=== PATIENT | female | born 1975 | race African-American/Black ===

== ENCOUNTER 2019-02-08 15:04 | Emergency (ER) | payer BC ==
[2019-02-08 15:19] VITALS: BMI 48.6
--- NOTE | 2019-02-08 15:19 | PDOC ---
Rapid Medical Evaluation Chief Complaint: Chest Pain Time Seen by Provider: 02/08/19 15:14 Medical Evaluation: Allergies Allergy/AdvReac Type Severity Reaction Status Date / Time No Known Allergies Allergy Verified 09/21/14 02:19 02/08/19 15:16 I have performed a brief in-person evaluation of this patient. The patient presents with a chief complaint of: Chest pain with worsen leg swelling , +SOB Pertinent physical exam findings: some SOB/ diaphoresis, + 3-4 pitting edema bilat up to knees. I have ordered the following: Ekg, CMP, CBC, Card profile, BNP, UA/Ucg, The patient will proceed to the ED for further evaluation. 02/08/19 15:18 Discharge Disposition - Diagnosis Chest pain - Referrals - Patient Instructions - Post Discharge Activity
--- NOTE | 2019-02-08 16:28 | PDOC ---
*Physical Exam - Vital Signs Last Vital Signs Temp Pulse Resp BP Pulse Ox 98 F 96 H 19 140/78 98 02/08/19 15:16 02/08/19 15:16 02/08/19 15:16 02/08/19 15:16 02/08/19 15:16 ED Treatment Course - LABORATORY CBC & Chemistry Diagram: 02/08/19 17:30 02/08/19 17:30 Medical Decision Making - Medical Decision Making 02/08/19 16:27 Ms Bernal is a 43 yo F with h/o HLD and morbid obesity who presents to ED for chest pain that began at work today. Pt went to PMD who sent her to the ER Pt seen by Midlevel Provider under my direct supervision Ancillary studies pending I agree with plan as outlined by Midlevel Provider 02/08/19 17:45 *DC/Admit/Observation/Transfer Diagnosis at time of Disposition: Atypical chest pain, Shortness of breath, Edema of both lower extremities - Discharge Dispostion Disposition: HOME Condition at time of disposition: Stable - Referrals Referrals: Mic Vital MD [Primary Care Provider] - - Patient Instructions Printed Discharge Instructions: DI for Atypical Chest Pain, DI for Peripheral Edema -- Bilateral Additional Instructions: As discussed, you MUST follow up with Dr. Vital tomorrow for further evaluation of your symptoms. If you develop worsening shortness of breath or chest pain, difficulty breathing, or any new or worsening symptoms, please return to the ER immediately. - Post Discharge Activity Forms/Work/School Notes: Back to Work
[2019-02-08 17:06] VITALS: BP 125/42; PULSE 89; TEMP 97.3
--- NOTE | 2019-02-08 17:28 | PDOC ---
History of Present Illness - General Chief Complaint: Chest Pain Stated Complaint: CHEST PAIN Time Seen by Provider: 02/08/19 15:14 - History of Present Illness Initial Comments: 02/08/19 17:28 CHIEF COMPLAINT: chest pain HISTORY OF PRESENT ILLNESS: 43 yo F with hx of HLD, peripheral edema, fibroids, anemia, sleep apnea, and morbid obesity presents to ED for chest pain that began at work today. For 2-3 days feeling very heavy in the legs, has had edema "forever" but recently the swelling has been even more severe. Chest pain is described at sharp radiating pain to the R chest. She states that she was seen by her PCP MD Vital today who sent her to the ED. Denies any use of OCPs, recent travel, recent surgery. Pt's manager pe is Dr. Martin. No recent travel or sick contacts. PAST MEDICAL HISTORY: Denies past medical history FAMILY HISTORY: Denies SOCIAL HISTORY: Denies tobacco, alcohol, illicit drug use. SURGICAL HISTORY: Denies ALLERGIES: No known drug allergies REVIEW OF SYSTEMS General/Constitutional: Denies fever or chills. Denies weakness, weight change. HEENT: Denies change in vision. Denies ear pain or discharge. Denies sore throat. Cardiovascular: Denies chest pain or shortness of breath. Respiratory: Denies cough, wheezing, or hemoptysis. Gastrointestinal: Denies nausea, vomiting, diarrhea or constipation. Denies rectal bleeding. Genitourinary: Denies dysuria, frequency, or change in urination. Musculoskeletal: Denies joint or muscle swelling or pain. Denies neck or back pain. Skin and breasts: Denies rash or easy bruising. Neurologic: Denies headache, vertigo, loss of consciousness, or loss of sensation. PHYSICAL EXAM General Appearance: Well-appearing, appropriately dressed. No apparent distress. HEENT: EOMI, PERRLA, normal ENT inspection, normal voice, TMs normal, pharynx normal. No conjunctival pallor. No photophobia, scleral icterus. Neck: Supple. Trachea midline. No tenderness, rigidity, carotid bruit, stridor , lymphadenopathy, or thyromegaly. Respiratory/Chest: Dyspnea on exertion, speech dyspnea. Lungs CTAB. No chest tenderness, accessory muscle use. No crackles, rales, rhonchi, stridor, wheezing , dullness Cardiovascular: RRR. S1, S2. No JVD, murmur, bradycardia, tachycardia. Vascular Pulses: Dorsalis-Pedis (R): 2+, Dorsalis-Pedis (L): 2+ Gastrointestinal/Abdominal: Normal bowel sounds. Abdomen soft, non-distended. No tenderness or rebound tenderness. No organomegaly, pulsatile mass, guarding , hernia, hepatomegaly, splenomegaly. Lymphatic: No adenopathy, tenderness. Musculoskeletal/Extremities: 2+ pitting edema to b/l lower extremities. Normal inspection. FROM of all extremities, normal capillary refill. Pelvis Stable. No CVA tenderness. No tenderness to extremities, pedal edema, swelling, erythema or deformity. Integumentary: Appropriate color, dry, warm. 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 Fully oriented, alert. Appropriate mood/affect. Motor strength 5/5. No appreciable EOM palsy, facial droop or sensory deficit. Past History - Past Medical History Allergies/Adverse Reactions: Allergies Allergy/AdvReac Type Severity Reaction Status Date / Time No Known Allergies Allergy Verified 02/08/19 15:19 Home Medications: Ambulatory Orders Venlafaxine HCl [Effexor] 25 mg PO DAILY 08/06/12 COPD: No Psychiatric Problems: Yes (depression, bipolar) Other medical history: sleep apnea - Immunization History Immunization Up to Date: Yes - Suicide/Smoking/Psychosocial Hx Smoking Status: No Smoking History: Never smoked Number of Cigarettes Smoked Daily: 0 Information on smoking cessation initiated: No Hx Alcohol Use: No Drug/Substance Use Hx: No *Physical Exam - Vital Signs Last Vital Signs Temp Pulse Resp BP Pulse Ox 97.3 F L 89 19 125/42 L 97 02/08/19 15:16 02/08/19 15:16 02/08/19 15:16 02/08/19 15:16 02/08/19 15:16 Heart Score/ECG Review - History History: Moderately suspicious - Electrocardiogram EKG: Non specific repolarization disturbance - Age Age: </= 45 - Risk Factors Risk Factors Heart Score: Yes Hx Hypercholesterolemia, Yes Positive family hx of cardiac disease, Yes Hx Obesity Based on the list above the patient has:: 1-2 risk factors - Troponin Troponin: </= normal limit - Score Heart Score - Total: 3 ED Treatment Course - LABORATORY CBC & Chemistry Diagram: 02/08/19 17:30 02/08/19 17:30 - ADDITIONAL ORDERS Additional order review: 02/08/19 17:30 RBC 4.16 MCV 80.2 MCHC 31.8 L RDW 16.9 H MPV 8.6 Neutrophils % 67.8 Lymphocytes % 21.9 Monocytes % 7.0 Eosinophils % 2.5 D Basophils % 0.8 - RADIOLOGY Radiology Studies Ordered: Category Date Time Status CHEST PA & LAT [RAD] Stat Radiology 02/08/19 17:39 Completed DUPLEX VASCUL US-2LEGS [US] Stat Ultrasound 02/08/19 22:48 Completed - Medications Given in the ED: ED Medications Discontinued Medications Generic Name Dose Route Start Last Admin Trade Name Freq PRN Reason Stop Dose Admin Furosemide 40 mg 02/08/19 18:36 02/08/19 18:59 Lasix Injection - IVPUSH 02/08/19 18:37 40 mg ONCE ONE Administration Medical Decision Making - Medical Decision Making 02/08/19 20:08 43 yo F with hx of HLD, peripheral edema, fibroids, anemia, sleep apnea, and morbid obesity presents to ED for chest pain that began at work today. -labs -ekg -cxr 02/08/19 20:38 Labs unremarkable. Patient reassessed, states she feels better at this time and chest pain has improved. Discussed with patient option to discharge with close follow up or observation, patient states she will see her PCP Dr. Vital tomorrow. Will repeat trop prior to discharge. CXR normal on wet read. 02/09/19 22:45 At this time patient presents note from Dr. Vital's office requesting r/o acs, pe/dvt. Will order d-dimer and vascular study. 02/10/19 01:01 US negative, d-dimer neg. Patient to f/u with Dr. Vital tomorrow. *DC/Admit/Observation/Transfer Diagnosis at time of Disposition: Atypical chest pain, Shortness of breath, Edema of both lower extremities - Discharge Dispostion Disposition: HOME Condition at time of disposition: Stable Decision to Admit order: No - Referrals Referrals: Mic Vital MD [Primary Care Provider] - - Patient Instructions Printed Discharge Instructions: DI for Atypical Chest Pain, DI for Peripheral Edema -- Bilateral Additional Instructions: As discussed, you MUST follow up with Dr. Vital tomorrow for further evaluation of your symptoms. If you develop worsening shortness of breath or chest pain, difficulty breathing, or any new or worsening symptoms, please return to the ER immediately. - Post Discharge Activity Forms/Work/School Notes: Back to Work
[2019-02-08 18:00] LABS: BASO % 0.8 % (0-2.0); EOS % 2.5 % (0-4.5); HEMATOCRIT 33.3 % (32.4-45.2); HEMOGLOBIN 10.6 GM/dL (10.7-15.3); LYMPH % 21.9 % (8-40); MCH 25.5 pg (25.7-33.7); MCHC 31.8 g/dl (32.0-36.0); MEAN CELL VOLUME 80.2 fl (80-96); MEAN PLT VOLUME 8.6 fl (7.5-11.1); NEUT % 67.8 % (42.8-82.8); PLATELET COUNT 335 K/MM3 (134-434); RBC 4.16 M/mm3 (3.60-5.2); RDW 16.9 % (11.6-15.6); WHITE BLOOD COUNT 8.1 K/mm3 (4.0-10.0)
[2019-02-08] MEDS ORDERED: FUROSEMIDE 40 MG/4 ML INJECTABLE VIAL IVPUSH ONE (18:36)
[2019-02-08 18:37] LABS: ALBUMIN 3.5 g/dl (3.4-5.0); ALK PHOS 84 U/L (45-117); ANION GAP 5 MMOL/L (8-16); BILIRUBIN,TOTAL < 0.1 mg/dL (0.2-1); BLOOD UREA NITROGEN 10.1 mg/dL (7-18); CALCIUM 8.5 mg/dL (8.5-10.1); CHLORIDE 110 mmol/L (98-107); CO2 29 mmol/L (21-32); CREATININE 1.1 mg/dL (0.55-1.3); GLUCOSE,RANDOM 85 mg/dL (74-106); N-TERMINAL BNP 102.5 pg/ml (5-125); POTASSIUM 4.1 mmol/L (3.5-5.1); SGOT/AST 18 U/L (15-37); SGPT/ALT 23 U/L (13-61); SODIUM 144 mmol/L (136-145); TOT PROT 6.6 g/dl (6.4-8.2)
[2019-02-08] MEDS ORDERED: FUROSEMIDE 40 MG/4 ML INJECTABLE VIAL ONE (18:53)
[2019-02-08 18:56] LABS: INR 1.06 (0.83-1.09); PROTHROMBIN TIME (PATIENT) 12.5 SEC (9.7-13.0)
[2019-02-08 19:00] LABS: EPI CELLS 2.9 /HPF (0-5/HPF); HYALINE CASTS 4 /lpf (0-8); PH,URINE 8.5 (5.0-8.0); URINE APPEARANCE CLEAR; URINE BACTERIA 142.9 /hpf (NEGATIVE); URINE BILIRUBIN NEGATIVE (NEGATIVE); URINE COLOR YELLOW; URINE GLUCOSE (UA) NEGATIVE (NEGATIVE); URINE KETONE TRACE (NEGATIVE); URINE LEUK ESTERASE NEGATIVE (NEGATIVE); URINE NITRITE NEGATIVE (NEGATIVE); URINE PROTEIN 2+ (NEGATIVE); URINE RBC 3 /hpf (0-4); URINE WBC 2 /hpf (0-5)
--- NOTE | 2019-02-09 12:55 | EKG ---
Test Reason : Blood Pressure : / mmHG Vent. Rate : 094 BPM Atrial Rate : 094 BPM P-R Int : 160 ms QRS Dur : 076 ms QT Int : 390 ms P-R-T Axes : 068 033 053 degrees QTc Int : 487 ms NORMAL SINUS RHYTHM PROLONGED QT ABNORMAL ECG WHEN COMPARED WITH ECG OF 21-SEP-2014 02:22, QT HAS LENGTHENED Confirmed by FÁTIMA CANADA MD ([id number]) on 02/09/2019 12:54:41 PM Referred By: Confirmed By:FÁTIMA CANADA MD
== END 2019-02-09 01:57 | disposition home or self-care (01) ==
LOC: JER 15:04
PROC: 3E033GC Introduction of Other Therapeutic Substance into Peripheral Vein, Percutaneous Approach (ICD-10-PCS; principal; 2019-02-08)
DX: R07.9 Chest pain, unspecified (principal); R06.02 Shortness of breath; R60.0 Localized edema; G47.39 Other sleep apnea; E66.01 Morbid (severe) obesity due to excess calories; Z68.42 Body mass index [BMI] 45.0-49.9, adult
CPT/HCPCS: 36415; 71046-TC-FY; 80053; 81003; 82550; 82553; 83735; 83880; 84484; 84703; 85025; 85379; 85610; 93005; 93010; 93970-TC; 99283-25

== ENCOUNTER 2020-12-09 04:41 | Inpatient (IN) | payer BC ==
[2020-12-08 10:18] VITALS: BMI 46.3
[2020-12-09] MEDS ORDERED: PROPOFOL 20 ML ONE ×2 (08:02→10:50)
[2020-12-09] MEDS ORDERED: LIDOCAINE HCL/PF 2% SDV 5ML VIAL ONE (08:02)
[2020-12-09] MEDS ORDERED: fentaNYL CITRATE 250 MCG/5 ML VIAL ONE (08:02)
[2020-12-09] MEDS ORDERED: ONDANSETRON 4 MG/2 ML VIAL ONE (08:02)
[2020-12-09] MEDS ORDERED: ROCURONIUM BROMIDE 100 MG/10 ML VIAL ONE (08:02)
[2020-12-09] MEDS ORDERED: DEXAMETHASONE SOD PHOSPHATE 4 MG/1 ML VIAL ONE (08:02)
[2020-12-09] MEDS ORDERED: MIDAZOLAM HCL 2 MG/2 ML SINGLE DOSE VIAL ONE ×2 (08:27)
[2020-12-09] MEDS ORDERED: ceFAZolin SODIUM 1 GM VIAL ONE (09:00)
[2020-12-09] MEDS ORDERED: ceFAZolin 2 GRAM PREMIX BAG IVPB ONE (09:02)
[2020-12-09] MEDS ORDERED: ROCURONIUM BROMIDE 50 MG/5 ML SYRINGE ONE (09:49)
[2020-12-09] MEDS ORDERED: ACETAMINOPHEN INJECTION 100 ML IVPB ONE ×2 (10:32→10:34)
[2020-12-09] MEDS ORDERED: GLYCOPYRROLATE 0.2 MG/1 ML VIAL ONE (10:47)
[2020-12-09] MEDS ORDERED: NEOSTIGMINE METHYLSULFATE 0.5 MG/ML - 10 ML MDV ONE (10:47)
[2020-12-09] MEDS ORDERED: BENZOIN/ALOE VERA/STORAX/TOLU 58 ML BOTTLE ONE (11:36)
[2020-12-09] MEDS ORDERED: oxyCODONE HCL 5 MG TABLET PO PRN ×4 (12:01→12:19)
[2020-12-09] MEDS ORDERED: IBUPROFEN 800 MG/8 ML IJ IVPB PRN (12:01)
[2020-12-09] MEDS ORDERED: LACTATED RINGERS SOLUTION 1,000 ML IV SCH (12:30)
[2020-12-09] MEDS: ELECTROLYTE-148 SOLN 1,000 ML IV SCH (13:45)
[2020-12-09] MEDS: ACETAMINOPHEN 325 MG TABLET (FP) PO SCH ×2 (16:23→21:33)
[2020-12-09] MEDS: CEFAZOLIN 2 GM/D5W 2 GM/50 ML ML IVPB SCH (17:17)
[2020-12-09] MEDS ORDERED: diazePAM CARPU-JECT 10 MG/2 ML DISP.SYRIN IVPUSH ONE (18:23)
[2020-12-09] MEDS: ONDANSETRON 4 MG/2 ML VIAL IVPUSH PRN (21:38)
[2020-12-09] MEDS ORDERED: SENNOSIDES/DOCUSATE COMBO (SENNA PLUS) TABLET (UD) PO PRN (22:00)
[2020-12-09] MEDS: lamoTRIgine 100 MG TABLET PO SCH (22:22)
[2020-12-09] MEDS: ASCORBIC ACID 500 MG TABLET (FP) PO SCH (22:22)
[2020-12-10] MEDS: CEFAZOLIN 2 GM/D5W 2 GM/50 ML ML IVPB SCH (02:38)
[2020-12-10] MEDS: ACETAMINOPHEN 325 MG TABLET (FP) PO SCH ×4 (04:38→21:32)
[2020-12-10] MEDS: traMADol HCL 50 MG TABLET PO PRN ×2 (08:23→18:53)
[2020-12-10 08:58] LABS: MCH 28.2 pg (25.7-33.7); MCHC 33.3 g/dl (32.0-36.0); MEAN CELL VOLUME 84.8 fl (80-96); MEAN PLT VOLUME 8.8 fl (7.5-11.1); PLATELET COUNT 266 K/MM3 (134-434); RBC 3.54 M/mm3 (3.60-5.2); RDW 17.7 % (11.6-15.6); WHITE BLOOD COUNT 9.7 K/mm3 (4.0-10.0)
[2020-12-10] MEDS: ARIPiprazole 20 MG TABLET PO SCH (09:23)
[2020-12-10] MEDS: ASCORBIC ACID 500 MG TABLET (FP) PO SCH ×2 (09:23→21:31)
[2020-12-10] MEDS: ENOXAPARIN NA (PORCINE) 40 MG/0.4 ML DISP.SYRIN SQ SCH (09:24)
[2020-12-10] MEDS: PYRIDOXINE HCL (B-6) 50 MG TABLET (FP) PO SCH (09:24)
[2020-12-10 09:31] LABS: BLOOD UREA NITROGEN 8.6 mg/dL (7-18)
[2020-12-10 09:35] LABS: BILIRUBIN,TOTAL 0.3 mg/dL (0.2-1); CREATININE 0.8 mg/dL (0.55-1.3)
[2020-12-10 09:36] LABS: TOT PROT 5.7 g/dl (6.4-8.2)
[2020-12-10] MEDS: lamoTRIgine 100 MG TABLET PO SCH ×2 (10:06→21:32)
[2020-12-11] MEDS: ACETAMINOPHEN 325 MG TABLET (FP) PO SCH ×4 (03:42→22:50)
[2020-12-11 08:01] LABS: BASO % 0.6 % (0-2.0); EOS % 0.4 % (0-4.5); HEMATOCRIT 31.1 % (32.4-45.2); HEMOGLOBIN 10.1 GM/dL (10.7-15.3); LYMPH % 14.4 % (8-40); MCH 27.9 pg (25.7-33.7); MCHC 32.6 g/dl (32.0-36.0); MEAN CELL VOLUME 85.4 fl (80-96); MONO % 6.2 % (3.8-10.2); NEUT % 78.4 % (42.8-82.8); PLATELET COUNT 282 K/MM3 (134-434); RBC 3.64 M/mm3 (3.60-5.2); RDW 17.9 % (11.6-15.6)
[2020-12-11] MEDS ORDERED: PT OWN MED DRAWER 7, Y5N ONE (09:03)
[2020-12-11] MEDS: ENOXAPARIN NA (PORCINE) 40 MG/0.4 ML DISP.SYRIN SQ SCH (09:10)
[2020-12-11] MEDS: lamoTRIgine 100 MG TABLET PO SCH ×2 (09:11→21:18)
[2020-12-11] MEDS: ARIPiprazole 20 MG TABLET PO SCH (09:11)
[2020-12-11] MEDS: PYRIDOXINE HCL (B-6) 50 MG TABLET (FP) PO SCH (09:12)
[2020-12-11] MEDS: ASCORBIC ACID 500 MG TABLET (FP) PO SCH ×2 (09:12→21:17)
[2020-12-11] MEDS: BISACODYL 10 MG SUPP.RECT PR PRN (11:50)
[2020-12-11] MEDS: ELECTROLYTE-148 SOLN 1,000 ML IV SCH (13:01)
[2020-12-11] MEDS: IBUPROFEN 600 MG TABLET (FP) PO PRN (13:09)
[2020-12-11] MEDS ORDERED: LACTATED RINGERS SOLUTION 1,000 ML IV SCH (16:00)
[2020-12-11] MEDS: ONDANSETRON 4 MG/2 ML VIAL IVPUSH PRN (20:44)
[2020-12-12] MEDS: ACETAMINOPHEN 325 MG TABLET (FP) PO SCH ×2 (03:28→10:48)
[2020-12-12] MEDS: ONDANSETRON 4 MG/2 ML VIAL IVPUSH PRN ×2 (03:55→09:06)
[2020-12-12] MEDS: ENOXAPARIN NA (PORCINE) 40 MG/0.4 ML DISP.SYRIN SQ SCH (09:05)
[2020-12-12] MEDS: lamoTRIgine 100 MG TABLET PO SCH ×2 (09:05→22:15)
[2020-12-12] MEDS: PYRIDOXINE HCL (B-6) 50 MG TABLET (FP) PO SCH (09:06)
[2020-12-12] MEDS: traMADol HCL 50 MG TABLET PO PRN (09:06)
[2020-12-12] MEDS: ARIPiprazole 20 MG TABLET PO SCH (09:08)
[2020-12-12] MEDS: ASCORBIC ACID 500 MG TABLET (FP) PO SCH ×2 (09:08→22:15)
[2020-12-12] MEDS: BISACODYL 10 MG SUPP.RECT PR PRN (09:09)
[2020-12-12 16:48] LABS: BASO % 0.6 % (0-2.0); EOS % 1.1 % (0-4.5); HEMATOCRIT 31.9 % (32.4-45.2); HEMOGLOBIN 10.3 GM/dL (10.7-15.3); LYMPH % 10.5 % (8-40); MCH 27.7 pg (25.7-33.7); MCHC 32.4 g/dl (32.0-36.0); MEAN CELL VOLUME 85.5 fl (80-96); MEAN PLT VOLUME 9.3 fl (7.5-11.1); MONO % 4.8 % (3.8-10.2); PLATELET COUNT 293 K/MM3 (134-434); RBC 3.73 M/mm3 (3.60-5.2); RDW 17.7 % (11.6-15.6); WHITE BLOOD COUNT 9.4 K/mm3 (4.0-10.0)
[2020-12-12 17:07] LABS: ALBUMIN 3.3 g/dl (3.4-5.0); BLOOD UREA NITROGEN 8.4 mg/dL (7-18); CALCIUM 8.5 mg/dL (8.5-10.1)
[2020-12-12 17:11] LABS: CREATININE 0.8 mg/dL (0.55-1.3)
[2020-12-12 17:12] LABS: BILIRUBIN,TOTAL 0.2 mg/dL (0.2-1); TOT PROT 6.5 g/dl (6.4-8.2)
[2020-12-12] MEDS: IBUPROFEN 600 MG TABLET (FP) PO PRN (19:27)
[2020-12-12] MEDS ORDERED: D5-LR+20 MEQ KCL - 20 MEQ/1,000 ML INFUS.BAG IV SCH (20:00)
[2020-12-12] MEDS ORDERED: LACTATED RINGERS SOLUTION 1,000 ML/1,000 ML INFUS.BAG IV SCH (21:15)
[2020-12-13] MEDS ORDERED: MAGNESIUM HYDROX 2400MG/30ML ORAL SUSPENSION 30 ML CUP PO ONE (10:00)
[2020-12-13] MEDS ORDERED: PT OWN MED DRAWER 7, Y5N ONE (12:00)
[2020-12-13] MEDS: ASCORBIC ACID 500 MG TABLET (FP) PO SCH (12:02)
[2020-12-13] MEDS: ENOXAPARIN NA (PORCINE) 40 MG/0.4 ML DISP.SYRIN SQ SCH (12:02)
[2020-12-13] MEDS: PYRIDOXINE HCL (B-6) 50 MG TABLET (FP) PO SCH (12:02)
[2020-12-13] MEDS: lamoTRIgine 100 MG TABLET PO SCH (12:02)
[2020-12-13] MEDS: ARIPiprazole 20 MG TABLET PO SCH (12:03)
[2020-12-13 14:36] VITALS: BP 135/57; PULSE 92; TEMP 98.9
== END 2020-12-13 16:12 | disposition home or self-care (01) | DRG 743 ==
LOC: J2C 04:41 → J3W 14:16 → J7W 12-10 18:49
PROVIDERS: ADMIT Obstetrics & Gynecology; ATTEND Obstetrics & Gynecology
PROC: 0UT70ZZ Resection of Bilateral Fallopian Tubes, Open Approach (ICD-10-PCS; 2020-12-09)
PROC: 0UT00ZZ Resection of Right Ovary, Open Approach (ICD-10-PCS; 2020-12-09)
PROC: 0DNW0ZZ Release Peritoneum, Open Approach (ICD-10-PCS; 2020-12-09)
PROC: 0DQ80ZZ Repair Small Intestine, Open Approach (ICD-10-PCS; 2020-12-09)
PROC: 0UT90ZL Resection of Uterus, Supracervical, Open Approach (ICD-10-PCS; principal; 2020-12-09 08:30)
DX: D25.9 Leiomyoma of uterus, unspecified (principal); N92.1 Excessive and frequent menstruation with irregular cycle; R10.2 Pelvic and perineal pain; D64.9 Anemia, unspecified; K66.0 Peritoneal adhesions (postprocedural) (postinfection)
CPT/HCPCS: 36415; 74019-TC-FY; 80053; 84703; 85025; 85027; 86850; 86900; 86901; 86922; 88307-TC; 94010; 94760; J0131

== ENCOUNTER 2024-01-18 09:58 | Emergency (ER) | payer BC ==
[2024-01-18 10:35] VITALS: BP 129/64; PULSE 75; RESP 18; TEMP 98; BMI 47.1
[2024-01-18 12:23] LABS: PH,URINE 7.5 (5.0-8.0); URINE APPEARANCE CLEAR; URINE BILIRUBIN NEGATIVE (NEGATIVE); URINE COLOR YELLOW; URINE GLUCOSE (UA) NEGATIVE (NEGATIVE); URINE KETONE NEGATIVE (NEGATIVE); URINE LEUK ESTERASE NEGATIVE (NEGATIVE); URINE NITRITE NEGATIVE (NEGATIVE); URINE PROTEIN NEGATIVE (NEGATIVE); URINE UROBILINOGEN 0.2 mg/dL (0.2-1.0)
[2024-01-18 12:27] LABS: EOS % 1.8 % (0-4.5); HEMATOCRIT 40.5 % (32.4-45.2); LYMPH % 33.3 % (8-40); MCH 28.5 pg (25.7-33.7); MCHC 32.2 g/dl (32.0-36.0); MEAN CELL VOLUME 88.5 fl (80-96); MEAN PLT VOLUME 8.3 fl (7.5-11.1); MONO % 4.9 % (3.8-10.2); PLATELET COUNT 252 10^3/uL (134-434); RBC 4.57 M/mm3 (3.60-5.2); RDW 15.7 % (11.6-15.6); WHITE BLOOD COUNT 6.3 K/mm3 (4.0-10.0)
[2024-01-18 12:30] LABS: INR 0.98 (0.83-1.09); PROTHROMBIN TIME (PATIENT) 11.1 SEC (9.7-13.0)
[2024-01-18 12:33] LABS: ACTIVATED PTT 32.4 SECONDS (25.2-36.5)
[2024-01-18 12:41] LABS: POTASSIUM 4.2 mmol/L (3.5-5.1)
[2024-01-18 12:43] LABS: ALBUMIN 3.6 g/dl (3.4-5.0); BLOOD UREA NITROGEN 15.6 mg/dL (7-18); CALCIUM 8.7 mg/dL (8.5-10.1)
[2024-01-18 12:46] LABS: CREATININE 0.9 mg/dL (0.55-1.3)
[2024-01-18 12:48] LABS: BILIRUBIN,TOTAL 0.3 mg/dL (0.2-1); TOT PROT 7.1 g/dl (6.4-8.2)
[2024-01-18 12:51] LABS: N-TERMINAL BNP 96.9 pg/ml (5-125)
== END 2024-01-18 14:58 | disposition home or self-care (01) ==
LOC: JER 09:58
DX: R60.0 Localized edema (principal); M79.661 Pain in right lower leg; M79.662 Pain in left lower leg
CPT/HCPCS: 36415; 71046-TC-FY; 80053; 81003; 83036; 83880; 84443; 84484; 84703; 85025; 85610; 85730; 93005; 93010; 93970-TC; 99285-25